=== PATIENT | male | born 1985 | race Caucasian/White ===

== ENCOUNTER 2016-03-24 02:01 | Emergency (ER) | payer BC ==
[~2016-03-24] VITALS: Ht 170.2 cm; Wt 74.8 kg
[2016-03-24 03:12] LABS: HEMATOCRIT 42.8 % (38.0-50.0); MCH 29.2 PG (29.0-34.0); MCHC 33.6 G/DL (30.0-36.0); MCV 86.8 FL (86-99); PLATELET COUNT 283 K/uL (156-360); RBC DIS.WIDTH-CV 12.4 % (11.8-14.6); RBC DIS.WIDTH-SD 38.7 % (39-53); RED BLOOD COUNT 4.93 M/uL (4.00-5.50); WHITE BLOOD COUNT 6.5 K/uL (4.1-10.2)
[2016-03-24 03:20] LABS: CHLORIDE 105 mEq/L (99-109); POTASSIUM 4.2 mEq/L (3.7-5.4); SODIUM 143 mEq/L (136-147)
[2016-03-24 03:22] LABS: GLUCOSE 132 mg/dL (70-99)
[2016-03-24 03:24] LABS: ANION GAP 12 MEQ/L (2-14)
[2016-03-24 03:25] LABS: SERUM ETHYL ALCOHOL 123 mg/dL
[2016-03-24 03:26] LABS: GFR ESTIMATE (CALCULATED) > 59 mL/min/
[2016-03-24 03:28] LABS: UREA NITROGEN (BUN) 15 mg/dL (9-23)
[2016-03-24 03:29] LABS: SALICYLATE < 5.0 MG/DL (15-30)
[2016-03-24] MEDS ORDERED: NARCAN4 MG NS (04:19)
[2016-03-24 04:32] VITALS: BP 165/88
== END 2016-03-24 04:33 | disposition home or self-care (01) ==
LOC: EME 02:01
PROVIDERS: Emergency Medicine
DX: T50.901A Poisoning by unspecified drugs, medicaments and biological substances, accidental (unintentional), initial encounter (principal); F11.10 Opioid abuse, uncomplicated; F10.129 Alcohol abuse with intoxication, unspecified; R23.0 Cyanosis; F17.200 Nicotine dependence, unspecified, uncomplicated; Y90.6 Blood alcohol level of 120-199 mg/100 ml
CPT/HCPCS: 80048; 81003; 85027; 93005; 99281; 99285; G0480; J2310; J7030